=== PATIENT | male | born 1990 | race Caucasian/White ===

== ENCOUNTER 2024-08-05 13:59 | Emergency (ER) | payer SELFPAY ==
[~2024-08-05] VITALS: Ht 180.3 cm; Wt 93.1 kg
[2024-08-05] MEDS ORDERED: SYMB16INH INH (14:44)
[2024-08-05 15:18] VITALS: BP 127/85; TEMP 98.9; O2SAT 97
== END 2024-08-05 15:18 | disposition home or self-care (01) ==
LOC: M ED 13:59
DX: S90.32XA Contusion of left foot, initial encounter (principal); Y92.9 Unspecified place or not applicable; Y93.9 Activity, unspecified; Y99.9 Unspecified external cause status; W23.1XXA Caught, crushed, jammed, or pinched between stationary objects, initial encounter; J45.909 Unspecified asthma, uncomplicated

== ENCOUNTER 2025-04-08 12:28 | Emergency (ER) | payer MEDICAID, OTHER ==
[~2025-04-08] VITALS: Ht 177.8 cm; Wt 86.0 kg
[~2025-04-08 12:28] MED LIST: SYMB16INH INH
[2025-04-08 15:22] LABS: BASO % 0.4 % (0.0-1.0); HEMATOCRIT 44.5 % (42.0-52.0); HEMOGLOBIN 15.6 g/dl (13.5-17.5); LYMPH # 1.6 10^3/uL (1.5-5.0); MEAN CORPUSCULAR HEMOGLOBIN 29.6 pg (27.0-33.0); MEAN CORPUSCULAR HGB CONC 35.1 g/dl (32.0-36.5); MEAN CORPUSCULAR VOLUME 84.4 fl (80.0-96.0); MONO # 0.4 10^3/uL (0.0-0.8); MONO % 5.9 % (2.0-8.0); NEUTROPHILS % 70.6 % (36.0-66.0); PLATELET COUNT, AUTOMATED 266 10^3/uL (150-450); RED BLOOD COUNT 5.27 10^6/uL (4.30-6.10); WHITE BLOOD COUNT 7.1 10^3/uL (4.0-10.0)
[2025-04-08 15:50] LABS: LIPASE 29 U/L (12-53)
[2025-04-08 15:52] LABS: ALKALINE PHOSPHATASE 129 U/L (40-129); ALT/SGPT 32 U/L (7.0-40); AST/SGOT 21 U/L (<34); BILIRUBIN,DIRECT 0.2 MG/DL (<0.4); BILIRUBIN,TOTAL 0.5 MG/DL (0.3-1.2); BLOOD UREA NITROGEN 9 MG/DL (9-23); CALCIUM LEVEL 10.1 MG/DL (8.5-10.1); CARBON DIOXIDE LEVEL 31 MMOL/L (20-31); CHLORIDE LEVEL 101 MMOL/L (98-107); CREATININE FOR GFR 0.79 MG/DL (0.70-1.30); GLOMERULAR FILTRATION RATE > 90.0 (>60); GLUCOSE, FASTING 87 MG/DL (60-100); POTASSIUM SERUM 4.2 MMOL/L (3.5-5.1); SODIUM LEVEL 140 MMOL/L (136-145); TOTAL PROTEIN 8.3 G/DL (5.7-8.2)
[2025-04-08] MEDS ORDERED: ISOVUE-370 76% 100ML VIAL As Ordered ONE (17:36)
[2025-04-08 18:21] LABS: KETONE, URINE AUTO RFX TRACE mg/dL (NEGATIVE); LEUKOCYTE ESTERASE UR AUTO RFX NEGATIVE (NEGATIVE); MUCUS, URINE RFX LARGE (NEGATIVE); NITRITE, URINE AUTO RFX NEGATIVE (NEGATIVE); RBC, URINE AUTO RFX 0 /HPF (0-3); SQUAM EPITHELIAL CELL UR AURFX 0 /HPF (0-6); WBC, URINE AUTO RFX 0 /HPF (0-3)
[2025-04-08] MEDS: NS (Normal Saline) 0.9% 1,000 ML IV ONE (18:24)
[2025-04-08] MEDS: ONDANSETRON 4MG 2ML VIAL IV ONE (18:24)
[2025-04-08] MEDS: PANTOPRAZOLE 40MG VIAL IV ONE (18:24)
[2025-04-08 18:30] VITALS: TEMP 97.1
[2025-04-08 18:44] LABS: CPK CREATINE PHOSPHOKINASE 120 U/L (46-171)
[2025-04-08 18:48] LABS: CK-MB VALUE MASS < 1.0 NG/ML (<3.6); MB/CK RELATIVE INDEX 0.83 (< OR =4)
[2025-04-08] MEDS ORDERED: ONDA-282 PO (20:21)
[2025-04-08 20:24] VITALS: BP 126/73; O2SAT 100
== END 2025-04-08 20:29 | disposition home or self-care (01) ==
LOC: M ED 12:28
DX: A08.4 Viral intestinal infection, unspecified (principal); F17.290 Nicotine dependence, other tobacco product, uncomplicated; R00.1 Bradycardia, unspecified; Z79.899 Other long term (current) drug therapy
CPT/HCPCS: 74177; 76705; 80047; 80048; 80076; 81001; 82550; 82553; 83605; 83690; 84484; 85025; 86850; 86900; 86901; 87040; 93005; 94760; 96374; 99284; J2405; J2470; Q9967

== ENCOUNTER → 2025-11-16 | Outpatient (REF) | payer OTHER ==
[~2025-11-16] MED LIST changes: +ONDA-282 PO
== END ==
LOC: M LAB REF 11:55
PROVIDERS: ATTEND Physician Assistant
DX: J02.9 Acute pharyngitis, unspecified (principal)